=== PATIENT | female | born 2000 | race Caucasian/White ===

== ENCOUNTER → 2022-12-06 09:42 | Outpatient (CLI) | payer OTHER, SELFPAY | PROVIDERS: PCP Nurse Practitioner Family; Visit Provider Internal Medicine Cardiovascular Disease | DX: R07.9 Chest pain, unspecified (principal); R00.2 Palpitations; R00.0 Tachycardia, unspecified; I45.6 Pre-excitation syndrome; Q21.10 Atrial septal defect, unspecified; R94.31 Abnormal electrocardiogram [ECG] [EKG] | CPT/HCPCS: 93270 ==

== ENCOUNTER → 2022-12-13 09:45 | Outpatient (CLI) | payer OTHER, SELFPAY | PROVIDERS: PCP Nurse Practitioner Family; Visit Provider Internal Medicine Cardiovascular Disease | DX: R00.2 Palpitations (principal) | CPT/HCPCS: 93306 ==

== ENCOUNTER → 2023-03-04 11:58 | Outpatient (CLI) | payer OTHER, SELFPAY ==
[2023-03-04 15:35] LABS: Blood Urea Nitrogen 16 mg/dl (7-17); Estimated Glomerular Filt Rate 90 ml/min (>60); GFR (African American) 109 ML/MIN (>60)
== END ==
PROVIDERS: PCP Nurse Practitioner Family; Visit Provider Internal Medicine
DX: R07.9 Chest pain, unspecified (principal); R94.31 Abnormal electrocardiogram [ECG] [EKG]
CPT/HCPCS: 36415; 82565; 84520

== ENCOUNTER 2023-03-13 06:21 | Outpatient (CLI) | payer OTHER, SELFPAY ==
[2023-03-13 06:49] VITALS: BMI 42.8
[2023-03-13 07:01] LABS: Urine Pregnancy, HCG Qual. Negative (Negative)
[2023-03-13 07:09] VITALS: BP 95/51; PULSE 64; RESP 18; TEMP 36.1; O2SAT 95
[2023-03-13 07:45] VITALS: BP 117/68; PULSE 56; RESP 17; O2SAT 98
== END 2023-03-13 08:05 | disposition home or self-care (01) ==
PROVIDERS: PCP Nurse Practitioner Family; Visit Provider Internal Medicine
DX: R07.9 Chest pain, unspecified (principal); I49.1 Atrial premature depolarization; I49.3 Ventricular premature depolarization
CPT/HCPCS: 75574; 81025; Q9967

== ENCOUNTER 2023-03-16 15:17 | Emergency (ER) | payer OTHER, SELFPAY ==
[2023-03-16] VITALS (12 sets, daily range): BP systolic 101–153; BP diastolic 72–96; PULSE 82–113; RESP 16–24; TEMP 36.8; O2SAT 94–99; BMI 42.8
--- NOTE | 2023-03-16 15:16 | ECG_ITS ---
APPROVED REPORT Exam: Resting ECG HR:105 bpm ECG Measurements Heart Rate 105 AXES MA 134 P 34 QRSd 106 QRS 16 QT 339 T -3 QTc 400 Conclusion SINUS TACHYCARDIA NONSPECIFIC ST & T-WAVE ABNORMALITY ABNORMAL RHYTHM ECG UNCONFIRMED REPORT Electronically signed by : Liam Temple MD 03/17/2023 21:27:06
--- NOTE | 2023-03-16 15:21 | XR_ITS ---
PROCEDURE INFORMATION: Exam: XR Chest Exam date and time: 03/16/2023 3:26 PM Age: 22 years old Clinical indication: Pain; Radiating; Additional info: Chest pain TECHNIQUE: Imaging protocol: Radiologic exam of the chest. Views: 1 view. COMPARISON: No relevant prior studies available. FINDINGS: Lungs: Lungs are hypoaerated. No evidence of pneumonia or interstitial edema. Pleural spaces: Unremarkable. No pleural effusion. No pneumothorax. Heart/Mediastinum: Unremarkable. No cardiomegaly. Bones/joints: Unremarkable. IMPRESSION: Lungs are hypoaerated. No evidence of pneumonia or interstitial edema.
--- NOTE | 2023-03-16 15:26 | HMH.EDGENADL ---
Discharge Plan Disposition Patient Disposition: Home, Self-Care Condition: Fair Chief Complaint: Chest Pain Prescriptions Prescriptions: No Action medroxyprogesterone 150 mg/mL syringe 150 mg IM [id number] Label Comments: ADMINISTER 1 ML IN THE MUSCLE 1 TIME EVERY 3 MONTHS escitalopram oxalate [Lexapro] 10 mg tablet 10 mg PO DAILY Vraylar 3 mg capsule 3 mg PO DAILY Label Comments: TAKE 1 CAPLET BY MOUTH DAILY omeprazole 40 mg capsule,delayed release(DR/EC) 40 mg PO QDAY Rx Instructions: swallow whole; do not crush, chew, dissolve, or cut/break bisoprolol fumarate 5 mg tablet 5 mg PO QDAY Referrals Follow up/Referrals: Provider,Referral, MD [Primary Care Provider] - See instructions Activity Restrictions/Add. Instructions Additional Instructions/Restrictions: You have been evaluated for chest pain and shortness of breath. Work-up today shows that you currently have COVID-19. No pulmonary embolism or evidence of a heart attack. It is very important that you monitor your symptoms, self isolate and quarantine. Tylenol for aches and pains. Follow-up with your primary care doctor. Return to the emergency department for any new or worsening symptoms, return of pain, difficulty breathing, other concerns. Clinical Impressions Clinical Impression: COVID-19 Instructions Patient Instructions: DI for COVID-19 (Suspected or Confirmed ) Discharge ED Provider: Sandra Zapata Adult HPI General Chief complaint: Chest Pain Stated complaint: chest pain Time Seen by Provider: 03/16/23 15:22 Mode of Arrival: Ambulatory Source of Information: Patient Limitations: No Limitations Description of Symptoms (Recalled from ER Triage Doc. by RN): pt presents to ED c/o left sided chest pain that started around 1100 this date. pt states the pain radiate to left arm. pt denies anything alleviating or aggravating factors. 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 Juárez. History of Present Illness HPI narrative: 22-year-old female presenting to the emergency department chest pain. Pain started this morning when she woke up, around 11am. Described as sharp. Located on the left side of her chest and radiating into her left arm. Pain has been constant since onset. Nothing seems to make it better or worse. She has a history of WPW. Denies palpitations or difficulty breathing. No leg swelling. No history of DVT or PE. She takes bisoprolol. Denies any changes to medications. She has been somewhat sick recently, sore throat and body aches. No formal diagnoses. Related Data Home Medications Medication Instructions Recorded Confirmed cariprazine 3 mg capsule (Vraylar) 3 mg PO DAILY . 12/06/22 03/13/23 escitalopram oxalate 10 mg tablet 10 mg PO DAILY . 12/06/22 03/13/23 (Lexapro) medroxyprogesterone 150 mg/mL 150 mg IM [id number] . 12/06/22 03/13/23 intramuscular syringe bisoprolol fumarate 5 mg tablet 5 mg PO QDAY bp 03/13/23 03/13/23 omeprazole 40 mg capsule,delayed 40 mg PO QDAY Reflux/Acid reflux 03/13/23 03/13/23 release Allergies Allergy/AdvReac Type Severity Reaction Status Date / Time No Known Allergies Allergy Verified 03/13/23 06:52 [facility] Disclaimer: The information contained in this section may have been updated after the patient was seen, as this information can be updated by other users. Medical History (Updated 03/16/23 @ 18:34 by Sandra Zapata DO) Abnormal electrocardiogram [ECG] [EKG] Anxiety and depression ASD (atrial septal defect) ASD, spontaneous closure Chest pain H/O coronary angiogram History of COVID-19 History of gastroesophageal reflux (GERD) History of stress test Insomnia PAC (premature atrial contraction) Palpitations PPP (palmoplantar pustulosis) Psoriasis Pulmonary stenosis PVC's (premature ventricular contractions) Tachycardia WPW (Pxmtp-Avfpldkoc-Mcaag syndrome) WPW (Mqaqw-Ouapbzodm-Osvae syndrome) Surgic
[2023-03-16 16:05] LABS: Basophils % 0.4 % (0.1-2.0); Eosinophils % 0.9 % (0.1-12.0); Hematocrit 43.1 % (37.0-47.0); Hemoglobin 14.1 g/dL (12.2-16.2); Lymphocytes # 0.4 K/mm3 (0.7-4.5); Lymphocytes % 9.2 % (10-50); Mean Corpuscular HGB Conc 32.7 g/dL (31.8-35.4); Mean Corpuscular Hemoglobin 28.8 pg (27.0-31.2); Mean Corpuscular Volume 88.1 fl (81-99); Monocytes # 0.4 K/mm3 (0.1-1.0); Monocytes % 8.7 % (1.7-9.3); Neutrophils # 3.9 K/mm3 (1.8-7.8); Neutrophils % 80.8 % (37.0-80.0); Platelet Count 239 K/mm3 (142-424); Red Cell Distribution Width 13.1 % (11.5-17.5); White Blood Count 4.8 K/mm3 (4.8-10.8)
[2023-03-16 16:12] LABS: Anion Gap 15.8 mEq/L (5-15); Blood Urea Nitrogen 9 mg/dl (7-17); Calcium 8.9 mg/dl (8.4-10.2); Carbon Dioxide 22 mmol/L (22.0-30.0); Chloride 104 mmol/L (98-107); Creatinine Clearance Estimated 175 mL/min (50-200); Estimated Glomerular Filt Rate 125 ml/min (>60); GFR (African American) 151 ML/MIN (>60); Glucose 97 mg/dl (74-100); Potassium 3.8 mmoL/L (3.5-5.1); Sodium 138 mmol/L (136-145)
[2023-03-16 16:17] LABS: D-Dimer 0.87 ug/mL (0.0-0.5)
[2023-03-16 16:26] LABS: Troponin I < 0.01 ng/ml (0.00-0.034)
--- NOTE | 2023-03-16 16:29 | PC.NURSE ---
covid swab and strep swab sent to lab.
[2023-03-16 16:36] LABS: Influenza A, PCR Not Detected (NotDetected); Influenza B, PCR Not Detected (NotDetected)
[2023-03-16 17:01] LABS: Strep Scrn Group A (Rapid) Negative (Negative)
--- NOTE | 2023-03-16 17:03 | CT_ITS ---
PROCEDURE INFORMATION: Exam: CTA Chest With Contrast Exam date and time: 03/16/2023 5:38 PM Age: 22 years old Clinical indication: Shortness of breath; Additional info: Pe suspected, elevated d-dimer TECHNIQUE: Imaging protocol: Computed tomographic angiography of the chest with contrast. Exam focused on the arteries. 3D rendering (Not supervised by radiologist): MIP and/or 3D reconstructed images were created by the technologist. Radiation optimization: All CT scans at this facility use at least one of these dose optimization techniques: automated exposure control; mA and/or kV adjustment per patient size (includes targeted exams where dose is matched to clinical indication); or iterative reconstruction. Contrast material: ISOVUE; Contrast volume: 70 ml; Contrast route: INTRAVENOUS (IV); REPORTING DATA: Count of CT and Cardiac NM exams in prior 12 months: This patient has received [address] and 0 known cardiac nuclear medicine studies in the 12 months prior to the current study. COMPARISON: CR XR CHEST PORTABLE 03/16/2023 3:26 PM FINDINGS: Limitations: Contrast bolus tracking is suboptimal for pulmonary embolus assessment of subsegmental level attributed to transient interruption of contrast. Pulmonary arteries: No evidence of proximal filling defects to suggest central pulmonary emboli. Aorta: Aorta is nonaneurysmal. Lungs: Left lower lobe pulmonary granuloma.No evidence of airspace opacity or interlobular septal thickening. Pleural spaces: No pneumothorax. No pleural effusion. Heart: No cardiomegaly or pericardial effusion. Heart RV/LV ratio: The RV/LV ratio is less than 1. Coronary arteries: No significant coronary artery calcifications. Lymph nodes: No evidence of mediastinal or hilar lymphadenopathy. Bones/joints: No acute osseous abnormality. Soft tissues: Unremarkable. IMPRESSION: No evidence of proximal filling defects to suggest central pulmonary emboli.
[2023-03-16 17:10] LABS: Coronavirus 19, PCR Detected (NotDetected)
[2023-03-16 17:19] LABS: HCG Qualitative, Serum Negative (Negative)
--- NOTE | 2023-03-16 17:34 | PC.NURSE ---
pt going to CT scan at this time.
--- NOTE | 2023-03-16 17:42 | PC.NURSE ---
pt returned from ct at this time.
== END 2023-03-16 18:52 | disposition home or self-care (01) ==
PROVIDERS: Emergency Provider Emergency Medicine
DX: U07.1 COVID-19 (principal); R07.9 Chest pain, unspecified; M79.602 Pain in left arm; F41.9 Anxiety disorder, unspecified; F32.A Depression, unspecified; F17.290 Nicotine dependence, other tobacco product, uncomplicated
CPT/HCPCS: 71045; 71275; 80048; 84484; 84703; 85025; 85378; 87430; 87635; 87636; 93005; 99285; C9803; Q9967; U0003; U0005

== ENCOUNTER → 2023-10-01 12:55 | Outpatient (CLI) | payer OTHER, SELFPAY | PROVIDERS: PCP Nurse Practitioner Family; Visit Provider Internal Medicine | DX: I45.6 Pre-excitation syndrome (principal); I49.1 Atrial premature depolarization; I49.3 Ventricular premature depolarization; R00.2 Palpitations | CPT/HCPCS: 93270 ==

== ENCOUNTER 2024-04-23 15:14 | Emergency (ER) | payer OTHER, SELFPAY ==
[2024-04-23 15:15] VITALS: BP 169/99; PULSE 124; RESP 18; TEMP 36.6; O2SAT 96; BMI 42.2
--- NOTE | 2024-04-23 15:16 | ECG_ITS ---
APPROVED REPORT Exam: Resting ECG HR:116 bpm ECG Measurements Heart Rate 116 AXES MI 112 P 45 QRSd 103 QRS 66 QT 323 T 41 QTc 392 Conclusion SINUS TACHYCARDIA No evidence of delta waves Electronically signed by : LEONARDO BUENO, 04/23/2024 22:17:43
--- NOTE | 2024-04-23 15:18 | XR_ITS ---
PROCEDURE INFORMATION: Exam: XR Chest Exam date and time: 04/23/2024 4:43 PM Age: 23 years old Clinical indication: Other: Chest pain; Additional info: Cp TECHNIQUE: Imaging protocol: Radiologic exam of the chest. Views: 1 view. COMPARISON: 1. CT ANGIO CHEST PE PROTOCOL 03/16/2023 5:38 PM 2. CR XR CHEST PORTABLE 03/16/2023 3:26 PM FINDINGS: Lungs: Lungs are clear. No pulmonary edema or consolidation. Pleural spaces: No pleural effusion. No pneumothorax. Heart/Mediastinum: Cardiomediastinal silhouette is normal. Bones/joints: No acute abnormality. IMPRESSION: No acute findings.
[2024-04-23 15:31] VITALS: BP 145/94; PULSE 89; RESP 20; O2SAT 96
[2024-04-23] MEDS: ASPIRIN 81MG CHEWABLE TABLET 324 MG PO (15:33)
--- NOTE | 2024-04-23 15:49 | HMH.EDCP ---
Discharge Plan Disposition Patient Disposition: Home, Self-Care Prescriptions Prescriptions: No Action medroxyprogesterone 150 mg/mL syringe 150 mg IM [id number] Patient Comments: ADMINISTER 1 ML IN THE MUSCLE 1 TIME EVERY 3 MONTHS paroxetine HCl 10 mg tablet 10 mg PO DAILY clobetasol 0.05 % ointment 1 applic topical BID Patient Comments: APPLY TOPICALLY TO THE AFFECTED AREA TWICE DAILY AT ONSET OF FLARES FOR UP TO 14 DAYS. STOP FOR 7 DAYS. REPEAT NEEDED hydroxyzine HCl 10 mg tablet 10 mg PO HS PRN clobetasol 0.05 % solution 1 applic topical diltiazem HCl 120 mg capsule,extended release 24hr 120 mg PO DAILY Qty: 90 3RF omeprazole 40 mg capsule,delayed release(DR/EC) 40 mg PO QDAY Rx Instructions: swallow whole; do not crush, chew, dissolve, or cut/break Referrals Follow up/Referrals: Provider,Referral, MD [Primary Care Provider] - See instructions Activity Restrictions/Add. Instructions Additional Instructions/Restrictions: Call your family doctor to establish care for this visit to the emergency department and schedule follow-up within 48 hours to ensure improvement. If you have any worsening of your condition or any other concerning signs or symptoms, return to the emergency department or your primary care doctor for further evaluation. 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 Clinical Impressions Clinical Impression: Heart palpitations, Chest pain, D-dimer, elevated Stand Alone Forms Stand Alone Forms: Work/School Release Instructions Patient Instructions: DI for Palpitations Discharge ED Provider: Jun Ghosh HPI General Chief Complaint: Chest Pain Stated Complaint: chest pain Time Seen by Provider: 04/23/24 15:18 Mode of Arrival: Ambulatory Source of Information: Patient Limitations: No Limitations Description of Symptoms (Recalled from ER Triage Doc. by RN): Patient reports chest pain that radiates to her left chest. States it is stabbing and started yesterday. History of Present Illness HPI narrative: Please note that above description of symptoms, in this electronic medical record under categorization of recalled from ER triage doctor by RN are reflective of an initial nursing assessment, however, is not reflective of my full history and physical exam that was personally taken and clarified. Consequentially, this preceding description of symptoms, which may include the patient's categorized chief complaint in the EMR, do not reflect my personal clinical impression, and the ultimate description of history of present illness and patient stated complaints should be deferred to this section of the note. Unless stated otherwise or congruent with this section of the note, additional signs, symptoms, or incongruence should be interpreted as inaccurate with my clinical impression. Related Data Home Medications Medication Instructions Recorded Confirmed medroxyprogesterone 150 mg/mL 150 mg IM [id number] . 12/06/22 10/01/23 intramuscular syringe omeprazole 40 mg capsule,delayed 40 mg PO QDAY Reflux/Acid reflux 03/13/23 10/01/23 release clobetasol 0.05 % scalp solution 1 applic topical 10/01/23 10/01/23 clobetasol 0.05 % topical ointment 1 applic topical BID 10/01/23 10/01/23 hydroxyzine HCl 10 mg tablet 10 mg PO HS PRN 10/01/23 10/01/23 paroxetine HCl 10 mg tablet 10 mg PO DAILY 10/01/23 10/01/23 Previous Rx's Medication Instructions Recorded diltiazem HCl 120 mg 120 mg PO DAILY #90 caps 10/01/23 capsule,extended release 24 hr Allergies Allergy/AdvReac Type Severity Reaction Status Date / Time bupropion [From Wellbutrin] Allergy Verified 04/23/24 15:22 caffeine Allergy Verified 04/23/24 15:22 chocolate flavor Allergy Verified 04/23/24 15:22 decongestants Allergy Uncoded 04/23/24 15:22 [facility] Disclaimer: The information contained in this section may have been updated after the patient was seen, as this information can be updated by other users. Medical History Abnormal electrocardiogram [ECG] [EKG] Anxiety and depression ASD (atrial septal defect) REpair 2012 ASD, spontaneous closure Chest pain H/O coronary angiogram History of COVID-19 History of gastroesophageal reflux (GERD) History of stress test Insomnia PAC (premature atrial contraction) Palpitations PPP (palmoplantar pustulosis) Psoriasis Pulmonary stenosis PVC's (premature ventricular contractions) Tachycardia WPW (Kikfy-Axchmryyz-Fqsrv syndrome) WPW (Mzhfr-Muqicgcuw-Dwvqk syndrome) ablation 2012 Surgical History History of cardiac cath [place] teeth removed Family History Other Anemia Depression Heart disease Hypertension Hypertensive retinopathy Kidney disease Stroke Social History Smoking Status: Unknown if ever smoked alcohol intake: never substance use type: denies use current occupational status: employed Travel in the last 8 weeks: None caffeine: No ROS Obtained: Yes All systems reviewed & no additional complaints except as documented Physical Exam General General appearance: alert, in no apparent distress and obese Neck Neck exam: Present trachea midline Chest Chest inspection: Present normal inspection and symmetric chest wall rise Respiratory Respiratory exam: Present normal lung sounds bilaterally; Absent respiratory distress, wheezes, stridor, accessory muscle use or prolonged expiratory phase Cardiovascular Cardiovascular exam: Present regular rate, normal rhythm, normal heart sounds and other (Pulses equal and symmetric in upper and lower extremities); Absent systolic murmur Extremities Exam Extremities exam: Absent edema Neurological Exam Neurological exam: Present alert, oriented X3 and CN II-XII intact Skin Skin exam: Present warm and dry; Absent cyanosis, diaphoresis or pallor HEART Score HEART Score HEART Score assessment performed?: Yes History (anamnesis): Slightly suspicious ECG: Normal Age: <45 years Risk factors: 1-2 risk factors Troponin: </= normal limit HEART Score: 1 Critical Care Critical Care Time Critical Care Time: No Medical Decision Making Medical Records Medical records reviewed: Yes I reviewed the patient's medical records. Eliecer Inquiry Pt receiving controlled substance: No Eliecer was queried for this patient: No Vital Signs Vital Signs: 04/23/24 15:15 04/23/24 15:31 04/23/24 15:58 Temperature 97.9 F Temperature Source Oral Pulse Rate 89 86 Pulse Rate [Radial] 124 H Respiratory Rate 18 20 18 Blood Pressure 145/94 H 136/81 Blood Pressure [Right Arm] 169/99 H Blood Pressure Mean [Right Arm] 122 Blood Pressure Source [Right Arm] Automatic Cuff Blood Pressure Position [Right Arm] Sitting 02 Sat by Pulse Oximetry 96 96 96 Oxygen Delivery Method Room Air 04/23/24 16:00 04/23/24 16:30 Temperature Temperature Source Pulse Rate 85 67 Pulse Rate [Radial] Respiratory Rate 20 14 Blood Pressure 130/89 138/87 Blood Pressure [Right Arm] Blood Pressure Mean [Right Arm] Blood Pressure Source [Right Arm] Blood Pressure Position [Right Arm] 02 Sat by Pulse Oximetry 96 97 Oxygen Delivery Method Lab Data Labs: Lab Results 04/23/24 15:35: WBC 4.7 L, RBC 4.39, Hgb 13.7, Hct 39.7, MCV 90.5, MCH 31.1, MCHC 34.4, RDW 13.6, Plt Count 252, MPV 8.0, Neut % (Auto) 64.7, Lymph % (Auto) 26.1, [place] % (Auto) 7.7, Eos % (Auto) 0.7, Baso % (Auto) 0.8, Neut # (Auto) 3.1, Lymph # (Auto) 1.2, [place] # (Auto) 0.4, Eos # (Auto) 0.0, Baso # (Auto) 0.0, D-Dimer 1.01 H, Sodium 138, Potassium 3.8, Chloride 109 H, Carbon Dioxide 21 L, Anion Gap 11.8, BUN 11, Creatinine 0.80, Estimated Creat Clear 130, Estimated GFR 89, Est GFR ( Amer) 108, Glucose 99, Calcium 9.2, Total Bilirubin 0.6, AST 28, ALT 35, Alkaline Phosphatase 65, Troponin I < 0.01, NT-Pro-B Natriuret Pep 31.7, Total Protein 7.3, Albumin 4.3, Globulin 3.0, Albumin/Globulin Ratio 1.4, TSH 1.48, Thyroxine (T4) 9.7, HCG, Quant < 2 04/23/24 15:35 04/23/24 15:35 Response Orders (Tests/Meds): ED MEDICATIONS Discontinued Medications Generic Name Dose Route Start Last Admin Trade Name Brian PRN Reason Stop Dose Admin Aspirin 324 mg 04/23/24 15:18 04/23/24 15:33 Aspirin 81mg Chewable Tablet PO 04/23/24 15:19 324 mg ONCE ONE Administration Iopamidol 70 ml 04/23/24 17:20 04/23/24 17:21 Iopamidol-370 (76%);100ml Bottle IV 04/23/24 17:21 70 ml ONCE ONE Administration Sodium Chloride 50 ml 04/23/24 17:20 04/23/24 17:21 0.9 % Sodium Chloride 50 Ml Vial IV 04/23/24 17:21 50 ml ONCE ONE Administration Sodium Chloride 10 ml 04/23/24 17:20 04/23/24 17:21 Sodium Chloride 0.9% 10ml Syr (Rad Only) IV 04/23/24 17:21 10 ml ONCE ONE Administration ORDERS Category Date Time Status CT angio chest PE protocol Stat Cat Scan 04/23/24 17:05 Completed CXR --portable [XR chest portable] Stat Exams 04/23/24 15:18 Completed CBC w/Auto Diff [Complete Blood Count Auto Diff] Stat Lab 04/23/24 15:35 Completed CMP [Comprehensive Metabolic Panel] Stat Lab 04/23/24 15:35 Completed D-Dimer Stat Lab 04/23/24 15:35 Completed HCG,Quantitative Stat Lab 04/23/24 15:35 Completed NT Pro Brain Natriuretic Pep. Stat Lab 04/23/24 15:35 Completed T4 (Thyroxine) Stat Lab 04/23/24 15:35 Completed TSH [Thyroid Stimulating Hormone] Stat Lab 04/23/24 15:35 Completed Trop I [Troponin I] Stat Lab 04/23/24 15:35 Completed Troponin I Q3H Lab 04/23/24 18:30 Ordered Troponin I Q3H Lab 04/23/24 21:30 Ordered MDM Narrative Medical Decision Narrative: 23-year-old female history of anxiety, panic, ASD status postrepair, pulmonary stenosis status postrepair, Rngyn-Piwhcidug-Rjmjz status post 3 ablations in early 2023 presenting with chest pain. 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 [place] like palpitations, cramping/stabbing, substernal, radiated to the left side of her chest. No associated shortness of breath, cough, fevers or chills, diaphoresis, vision changes, weakness, ambulatory changes, or any other associated symptoms. She states that the pain is intermittent, waxes and wanes, but never fully goes away. Took an aspirin yesterday, this was able to cause the pain to iglesia. Came back shortly thereafter, took another baby aspirin this morning, that helped with pain, but it did not completely go away this time. Came in for further evaluation given complex medical history. Patient also states that she was recently started on a new anxiety medication, may be related. History was obtained via conversation with patient and mother. On arrival, patient hemodynamically stable, alert, oriented x4, appropriate, GCS 15, moving all extremities spontaneously, pupils equal and reactive to light. Full physical exam performed and significant for very well-appearing female no acute distress. Cardiac exam remarkably normal. No murmurs, gallops, rubs. Normal S1 and S2. Pulses equal and symmetric in upper and lower extremities. Lungs are clear to auscultation anterior and posterior bilaterally. No lower extremity edema. Patient grossly neurologically intact and ambulatory. Differential includes PE, endocrinologic abnormality, dehydration, anxiety, ACS, NM, coronary artery dissection, arrhythmia, among others. Patient was given 324 mg aspirin, fluids for symptomatic management and correction of underlying abnormalities. Independent interpretation of EKG shows sinus tachycardia [address] changes or T wave changes concerning for acute ischemia. Patient's TN interval appropriate at 112, QRS narrow at 103, QTc 392 and normal. [place] is normal no evidence of slurred upstrokes, delta waves. Workup independently interpreted and significant for nonactionable CBC or chemistry. Troponin negative, BNP negative. hCG negative. D-dimer elevated at 1.01 ng/mL. Chest x-ray without acute cardiopulmonary airspace disease. See radiology read for full review of final results. Patient placed on continuous cardiac monitoring and continuous pulse ox with initial blood pressure 169/99, heart rate 124, saturation 96 on room air. Heart score 1. Delta troponin was considered, but deemed unnecessary due to pain starting yesterday and minimal intermittent pains here. Conversation was had with patient and mother regarding CT PE given elevated dimer, acuity of onset yesterday, and no other leading explanation. They are agreeable to CT PE. CT PE ordered and demonstrated no acute PE. On reevaluation, patient resting comfortably, pulse in the 60s, normotensive, in no acute distress without symptoms after aspirin. Because patient at baseline without signs or symptoms of clinical decompensation, deemed appropriate for discharge. Results were relayed to patient who voiced understanding and were agreeable to outpatient management and follow up. I discussed my clinical impression with patient and answered all questions. At this time, the evidence for any other entities in the differential is insufficient to warrant any further testing or ED observation. This was explained as well. Advisory was given that persistent or worsening symptoms require further evaluation. I confirmed the understanding of this discussion. Gauge And Weigh Machine Adjuster disclaimer Much of this encounter note is an electronic vocational rehabilitation consultant spoken language to printed text. Electronic vocational rehabilitation consultant of the spoken language may permit errors. Although I have reviewed the note, some errors may still exist.
[2024-04-23 15:58] VITALS: BP 136/81; PULSE 86; RESP 18; O2SAT 96
[2024-04-23 15:59] LABS: Basophils % 0.8 % (0.1-2.0); Eosinophils % 0.7 % (0.1-12.0); Hematocrit 39.7 % (37.0-47.0); Hemoglobin 13.7 g/dL (12.2-16.2); Lymphocytes # 1.2 K/mm3 (0.7-4.5); Lymphocytes % 26.1 % (10-50); Mean Corpuscular HGB Conc 34.4 g/dL (31.8-35.4); Mean Corpuscular Hemoglobin 31.1 pg (27.0-31.2); Mean Corpuscular Volume 90.5 fl (81-99); Monocytes # 0.4 K/mm3 (0.1-1.0); Monocytes % 7.7 % (1.7-9.3); Neutrophils # 3.1 K/mm3 (1.8-7.8); Neutrophils % 64.7 % (37.0-80.0); Platelet Count 252 K/mm3 (142-424); Red Blood Count 4.39 M/mm3 (4.20-5.40); Red Cell Distribution Width 13.6 % (11.5-17.5); White Blood Count 4.7 K/mm3 (4.8-10.8)
[2024-04-23 16:00] VITALS: BP 130/89; PULSE 85; RESP 20; O2SAT 96
--- NOTE | 2024-04-23 16:00 | PC.NURSE ---
@ 1548- H Mesfin WEBSTER called lab to check the status of the blood-work sent as the lab has not received in the specimens yet. Blood was collected at 1535. Lab states they did not have any blood on this pt. I called back to have them double check, as there are not specimens in the tube system. @ 1552- Called lab back and s/w Namrata and she checked and again and now states we just got them . Specimens registered in at 1555.
[2024-04-23 16:05] LABS: Alanine Aminotransferase 35 U/L (12-78); Albumin Level 4.3 g/dl (3.5-5.0); Albumin/Globulin Ratio 1.4 (1.1-1.8); Alkaline Phosphatase 65 U/L (38-126); Anion Gap 11.8 mEq/L (5-15); Aspartate Amino Transferase 28 U/L (14-36); Bilirubin,Total 0.6 mg/dl (0.2-1.3); Blood Urea Nitrogen 11 mg/dl (7-17); Calcium 9.2 mg/dl (8.4-10.2); Carbon Dioxide 21 mmol/L (22.0-30.0); Chloride 109 mmol/L (98-107); Creatinine Clearance Estimated 130 mL/min (50-200); Estimated Glomerular Filt Rate 89 ml/min (>60); GFR (African American) 108 ML/MIN (>60); Glucose 99 mg/dl (74-100); Potassium 3.8 mmoL/L (3.5-5.1); Sodium 138 mmol/L (136-145); Total Protein,Serum 7.3 g/dl (6.3-8.2)
[2024-04-23 16:10] LABS: D-Dimer 1.01 ug/mL (0.0-0.5)
[2024-04-23 16:19] LABS: NT Pro Brain Natriuretic Pep. 31.7 pg/mL (0-125)
[2024-04-23 16:30] VITALS: BP 138/87; PULSE 67; RESP 14; O2SAT 97
[2024-04-23 16:31] LABS: Troponin I < 0.01 ng/ml (0.00-0.034)
[2024-04-23 16:45] LABS: HCG,Quantitative < 2 mIU/ml (0-5.42); T4 (Thyroxine) 9.7 ug/dl (5.53-11.0)
[2024-04-23 16:58] LABS: Thyroid Stimulating Hormone 1.48 uIU/mL (0.465-4.68)
--- NOTE | 2024-04-23 17:05 | CT_ITS ---
PROCEDURE INFORMATION: Exam: CTA Chest With Contrast Exam date and time: 04/23/2024 5:17 PM Age: 23 years old Clinical indication: Abnormal findings; Abnormal diagnostic tests; Elevated d-dimer; Additional info: Palpitatoins, tachycardia, dimer TECHNIQUE: Imaging protocol: Computed tomographic angiography of the chest with contrast. Exam focused on the arteries. 3D rendering (Not supervised by radiologist): MIP and/or 3D reconstructed images were created by the technologist. Radiation optimization: All CT scans at this facility use at least one of these dose optimization techniques: automated exposure control; mA and/or kV adjustment per patient size (includes targeted exams where dose is matched to clinical indication); or iterative reconstruction. Contrast material: ISOVUE 370; Contrast volume: 70 ml; Contrast route: INTRAVENOUS (IV); COMPARISON: CT ANGIO CHEST PE PROTOCOL 03/16/2023 5:38 PM FINDINGS: Pulmonary arteries: No pulmonary artery embolism identified. Main pulmonary artery is normal caliber. Aorta: No aortic aneurysm. No aortic dissection or evidence of acute aortic abnormality. Lungs: No pulmonary consolidation, mass, or suspicious pulmonary nodule. Stable subpleural 5 mm right middle lobe nodule and small subpleural calcified granuloma in the left lower lobe. Suggestion of mosaic attenuation in the lower lungs which may be due to air trapping. Pleural spaces: No pneumothorax. No pleural effusion. Heart: Heart size is normal. ASD occluded device redemonstrated. No pericardial effusion. Coronary arteries: No coronary artery calcifications. Lymph nodes: No adenopathy. Bones/joints: No acute osseous abnormality or suspicious osseous lesion. Soft tissues: Unremarkable. Other findings: No acute abnormality in the included upper abdomen. Included portion of the liver demonstrates decreased attenuation compatible with hepatic steatosis. Few small calcified splenic granulomata. IMPRESSION: 1. No pulmonary artery embolism identified. 2. Chronic and incidental findings as above.
--- NOTE | 2024-04-23 17:13 | PC.NURSE ---
patient gone to CT at this time.
[2024-04-23] MEDS: 0.9 % SODIUM CHLORIDE 50 ML VIAL IV (17:21)
[2024-04-23] MEDS: IOPAMIDOL-370 (76%);100ML BOTTLE 70 ML IV (17:21)
[2024-04-23] MEDS: SODIUM CHLORIDE 0.9% 10ML SYR (RAD ONLY) 10 ML IV (17:21)
--- NOTE | 2024-04-23 18:14 | PC.NURSE ---
CPS utility forester arrived and s/w Dr. Ghosh at this time.
[2024-04-23 18:27] VITALS: BP 138/87; PULSE 67; RESP 14; TEMP 36.8; O2SAT 97
== END 2024-04-23 18:29 | disposition home or self-care (01) ==
PROVIDERS: Emergency Provider Emergency Medicine
DX: R07.9 Chest pain, unspecified (principal); R00.2 Palpitations; R79.1 Abnormal coagulation profile; R00.0 Tachycardia, unspecified; F41.9 Anxiety disorder, unspecified
CPT/HCPCS: 71045; 71275; 80050; 80053; 83880; 84436; 84443; 84484; 84702; 85025; 85378; 93005; 99285; Q9967